=== PATIENT | male | born 1955 | race Caucasian/White ===

== ENCOUNTER 2016-10-20 07:09 | Day surgery (SDC) | payer OTHER ==
--- NOTE | 2016-10-19 13:04 | PREOPHP ---
DATE OF ADMISSION: 10/20/2016 HISTORY OF PRESENT ILLNESS: This 61-year-old patient is admitted for elective cataract surgery of t he left eye. The patient has had decreased vision in the left eye for the past 8 months without jaqui or history of eye disease or injury. Patient does have a history of insulin-dependent diabetes gucci itus and systemic hypertension. CURRENT MEDICATIONS INCLUDE: 1. Insulin. 2. Metformin. 3. Aspirin (discontinued 1 week prior to surgery). 4. Gemfibrozil. 5. Benazepril. ALLERGIES: THERE ARE NO KNOWN ALLERGIES. PHYSICAL EXAMINATION: The visual acuity best corrected is finger counting vision in each eye. Slit lamp examination reveals nuclear sclerotic and dense posterior subcapsular cataracts in both eyes w ith the left eye appearing to be a near mature cataract. Applanation tonometry is 11 mmHg in both e yes. Examination of the retina looks grossly within normal limits in the right eye. The left view of the retina in the left eye is obscured by the advanced cataract. DIAGNOSIS: Mature cataract, left eye. PLAN: Cataract extraction with lens implant, left eye. The risks and alternatives to the surgery h ave been discussed with the patient, as well as a result for improvement of visual acuity leading to a greater ability to perform activities of daily living. The patient understands this and agrees t o proceed with surgery. Dictated By: ESPINOZA ANTONIO/APRIL Conf#: [id number] DID#: [id number]
[~2016-10-20] VITALS: Ht 157.5 cm; Wt 66.3 kg
[~2016-10-20 07:09] MED LIST: CIPROFLOXACIN 0.3% 2.5 ML OPH OPER SCH; CYCLOPENTOLATE/PHENYLEPH 2 ML OPH OPER SCH; DICLOFENAC 0.1% 2.5 ML OPH OPER SCH; TROPICAMIDE 1% 2 ML OPH OPER SCH
[2016-10-20] MEDS ORDERED: METF1000 PO (08:23)
[2016-10-20] MEDS ORDERED: ASPI-664 PO (08:23)
[2016-10-20] MEDS ORDERED: NOVO7030 SC (08:24)
[2016-10-20 09:41] VITALS: Ht 157.5 cm; Wt 66.3 kg
[2016-10-20 09:46] VITALS: BP 159/85; PULSE 95; RESP 19
[2016-10-20] MEDS ORDERED: CARBACHOL 0.01% 1.5 ML OPH INJ ONE (09:57)
[2016-10-20] MEDS ORDERED: LIDOCAINE 4% (MPF) 5 ML INJ ONE (09:57)
[2016-10-20] MEDS ORDERED: CEFAZOLIN 1 GM INJ ONE (09:57)
[2016-10-20] MEDS ORDERED: GENTAMICIN 80 MG INJ ONE (09:57)
[2016-10-20] MEDS ORDERED: HYALURONATE/CHONDROITIN 1ML OPH INJ ONE (09:58)
[2016-10-20] MEDS ORDERED: DEXAMETHASONE 4 MG/ML 1 ML INJ ONE (09:58)
[2016-10-20] MEDS ORDERED: EPINEPHrine 1 MG INJ ONE (09:58)
[2016-10-20] MEDS ORDERED: CARBACHOL 0.01% 1.5 ML OPH INJ IO ONE (10:20)
[2016-10-20] MEDS ORDERED: CEFAZOLIN 1 GM INJ INJ ONE (10:20)
[2016-10-20] MEDS ORDERED: HYALURONATE/CHONDROITIN 1ML OPH INJ IO ONE (10:20)
[2016-10-20] MEDS ORDERED: DEXAMETHASONE 4 MG/ML 1 ML INJ INJ ONE (10:20)
[2016-10-20] MEDS ORDERED: MEPERIDINE 25 MG INJ IV PRN (10:30)
[2016-10-20] MEDS ORDERED: MIDAZOLAM 1 MG/ML 2 ML INJ IV PRN (10:30)
[2016-10-20] MEDS ORDERED: FENTAnyl 50 MCG/ML VIAL IV PRN ×2 (10:30)
[2016-10-20] MEDS ORDERED: DIPHENHYDRAMINE 50 MG INJ IV PRN (10:30)
[2016-10-20] MEDS ORDERED: ONDANSETRON 4 MG INJ IV PRN (10:30)
[2016-10-20] MEDS ORDERED: METOCLOPRAMIDE 10 MG INJ IV PRN (10:30)
[2016-10-20] MEDS ORDERED: OXYCODONE/ACETAMINOPHEN (5/325) TAB PO PRN ×2 (10:30)
[2016-10-20] MEDS ORDERED: PROPOFOL 20 ML ONE (10:45)
[2016-10-20 11:02] VITALS: BP 155/87; PULSE 88; RESP 25
[2016-10-20 11:07] VITALS: BP 146/85; PULSE 86; RESP 13
[2016-10-20 11:13] VITALS: BP 151/87; PULSE 86; RESP 13
[2016-10-20 11:20] VITALS: BP 149/88; PULSE 86; RESP 14
[2016-10-20 11:30] VITALS: BP 124/64; PULSE 87; RESP 20
--- NOTE | 2016-10-20 11:38 | OPR ---
DATE OF OPERATION: 10/20/2016 PREOPERATIVE DIAGNOSIS: Mature cataract, left eye. POSTOPERATIVE DIAGNOSIS: Mature cataract, left eye. OPERATION PERFORMED: Cataract extraction with lens implant, left eye. SURGEON: Espinoza Stringer MD ANESTHESIA: Local standby. ANESTHESIOLOGIST: Dr. Marcial OPERATION: Phacoemulsification with posterior chamber intraocular lens implant, left eye. Phacoemulsification with posterior chamber intraocular. A total of 2 minutes and 32 seconds was spe nt using the ultrasonic controls to remove the mature lens nucleus. PROCEDURE: The patient was brought to the operating room and placed on the table with an IV in plac e and the patient attached to an court monitor. Oxygen was given via face mask. After some intravenous sedation was administered, local anesthesia was given using Xylocaine 2% with epinephrine, mixed with Marcaine 0.5%. This was given in a lid block and retrobulbar injection. The patient was then prepped and draped in the usual sterile manner. A wire lid speculum was inserted between the lids of the left eye. A Superblade was used to enter th e anterior chamber at the corneoscleral limbus at the 10:30 o'clock position. A separate incision wa s made using a 3.0-mm keratome which entered the corneoscleral junction at the 12 o'clock position. Through this 3-mm opening, an irrigating cystotome was introduced into the anterior chamber. The shilpi mber was filled with Viscoat and an anterior capsulotomy was performed. Balanced salt solution was t hen used for hydrodissection of the lens. A phacoemulsification handpiece was then brought into the field and introduced into the anterior chamber. The lens nucleus was emulsified using a deep groove and cracking the nucleus into quadrants. Following this, each quadrant was aspirated and emulsified at the pupillary margin. After this was completed, the irrigation/aspiration handpiece was brought to the field, introduced i nto the posterior chamber, and the lens cortical material was removed. When this was completed, azul tional Viscoat was injected into the anterior and posterior chambers. The 3-mm opening had its internal lips enlarged, and then the posterior chamber intraocular lens tobias suring 21.5 diopters ([employer] Model LI61AO) was then injected into the posterior chamber using the lens injector system. After the leading haptic was introduced into the capsular b ag and the lens optic was present in the center of the eye, the injector was removed and the trailin g haptic was grasped with non-toothed forceps and introduced into the capsular fold superiorly. A Si nskey hook was then used to rotate the intraocular lens so that the lips were oriented in the horizo ntal meridian. One 10-0 nylon suture was placed across the wound. Prior to tying, the irrigation/aspiration handpiece was reintroduced into the anterior chamber to re move the Viscoat. Miochol was instilled to constrict the pupil, and then the 10-0 nylon suture was t ied. The ends were cut short and then the knot was buried. Then, 0.5 mL of dexamethasone and 0.5 mL of Ancef were injected into the sub-Tenon space in the infe rior fornix. Ciloxan drops were then placed on the surface of the eye. The speculum was removed and a patch was applied. The patient then left the operating room in satisfactory condition. Dictated By: ESPINOZA ANTONIO/APRIL Conf#: [id number] DID#: [id number]
== END 2016-10-20 12:30 | disposition home or self-care (01) ==
LOC: SDS 07:09
PROVIDERS: ATTEND Ophthalmology
DX: H25.042 Posterior subcapsular polar age-related cataract, left eye (principal); E11.9 Type 2 diabetes mellitus without complications; Z79.4 Long term (current) use of insulin; I10 Essential (primary) hypertension
CPT/HCPCS: 66984; 82962; J0171; J0690; J1100; J1580; V2632; Z7512; Z7610

== ENCOUNTER 2017-01-05 08:12 | Day surgery (SDC) | payer OTHER ==
--- NOTE | 2016-12-31 13:56 | PREOPHP ---
DATE OF ADMISSION: 01/05/2017 HISTORY OF PRESENT ILLNESS: This is a 60-year-old patient who is admitted for elective cataract surgery of the right eye. The patient has had a decreased vision for the last 10 months, and 2 months ago underwent cataract surgery for a mature cataract in the left eye. The surgery was performed and the patient has significant recovery of his visual acuity. The patient is now admitted for cataract surgery of the right eye. The patient has a history of insulin dependent diabetes mellitus and systemic hypertension. REVIEW OF SYSTEMS: The patient's systemic history is within normal limits with no evidence of disease. MEDICATIONS: Includes insulin, Metformin, Gemfibrozil, Benazepril and aspirin (aspirin discontinued 2 weeks ago prior to surgery). ALLERGIES: THERE ARE NO KNOWN ALLERGIES. EXAMINATION: EYES: On examination, the visual acuity with best correction is finger counting in the right eye and 20/40 in the left eye. Slit lamp examination reveals nuclear sclerotic and posterior subcapsular cataract in the right eye. The left eye has a posterior chamber intraocular lens in appropriate position. Applanation tonometry 11 mmHg. Examination of the retina appears within normal limits in the right eye. DIAGNOSIS: Advanced cataract formation in the right eye. PLAN: Cataract extraction with lens implant, right eye. The risks and alternatives of the surgery have been discussed with the patient and patient has opted to proceed with surgery on the basis of the visual improvement that he obtained in the left eye following cataract surgery, and in the hopes of being able to perform activities of daily living, which be made easier with improved visual acuity. Dictated By: Az Stringer MD /chavo/maury /Document#: [id number]
[~2017-01-05] VITALS: Ht 170.2 cm; Wt 64.0 kg
[2017-01-05] VITALS (10 sets, daily range): BP systolic 126–150; BP diastolic 80–93; PULSE 88–93; RESP 8–19; Ht 170.2 cm; Wt 64.0 kg
[~2017-01-05 08:12] MED LIST changes: +ASPI-664 PO; +ATROPINE 1 MG/10 ML SYRINGE IV PRN; +DIPHENHYDRAMINE 50 MG INJ IV PRN; +EPHEDrine SULFATE 50 MG/5 ML SYG IV PRN; +FENTAnyl 50 MCG/ML VIAL IV PRN; +HYDROmorphONE (0.2 MG/ML) 10ML SYG IV PRN; +LABETALOL HCL 20MG INJ IV PRN; +MEPERIDINE 25 MG INJ IV PRN; +METF1000 PO; +MIDAZOLAM 1 MG/ML 2 ML INJ IV PRN; +NOVO7030 SC; +ONDANSETRON 4 MG INJ IV PRN; +OXYCODONE/ACETAMINOPHEN (5/325) TAB PO PRN; -TROPICAMIDE 1% 2 ML OPH OPER SCH; +TROPICAMIDE 1% 3ML OPH OPER SCH; +hydrALAzine 20 MG INJ IV PRN; +morphine (1 MG/ML) 10ML SYRINGE IV PRN
--- NOTE | 2017-01-05 08:14 | HPN ---
Date/Time of Note Date/Time of Note DATE: 01/05/17 TIME: 08:14 Interval H&P Admission Note Pt. seen H&P reviewed: No system changes ESPINOZA WATTS MD Jan 05, 2017 08:14
--- NOTE | 2017-01-05 08:16 | SIPON ---
Date/Time of Note Date/Time of Note DATE: 01/05/17 TIME: 08:14 Operative Report Preoperative Diagnosis cataract od Postoperative Diagnosis same Operation/Procedure Performed cataract surgery od Surgeon: ESPINOZA WATTS MD Anesthesia Type: MAC Estimated Blood Loss: none Transfusion Required: no Specimen: none Grafts/Implants posterior chamber lens implant Complications: no ESPINOZA WATTS MD Jan 05, 2017 08:16
--- NOTE | 2017-01-05 08:18 | HPN ---
Date/Time of Note Date/Time of Note DATE: 01/05/17 TIME: 08:18 Interval H&P Admission Note Pt. seen H&P reviewed: No system changes ESPINOZA WATTS MD Jan 05, 2017 08:18
[2017-01-05] MEDS ORDERED: EPINEPHrine 1 MG INJ ONE (11:04)
[2017-01-05] MEDS ORDERED: DEXAMETHASONE 4 MG/ML 1 ML INJ ONE (11:04)
[2017-01-05] MEDS ORDERED: CEFAZOLIN 1 GM INJ ONE (11:04)
[2017-01-05] MEDS ORDERED: LIDOCAINE 4% (MPF) 5 ML INJ ONE (11:04)
[2017-01-05] MEDS ORDERED: GENTAMICIN 80 MG INJ ONE (11:04)
[2017-01-05] MEDS ORDERED: CARBACHOL 0.01% 1.5 ML OPH INJ ONE (11:04)
--- NOTE | 2017-01-05 11:08 | HPN ---
Date/Time of Note Date/Time of Note DATE: 01/05/17 TIME: 11:07 Interval H&P Admission Note Pt. seen H&P reviewed: No system changes ESPINOZA WATTS MD Jan 05, 2017 11:07
[2017-01-05] MEDS ORDERED: PROPOFOL 20 ML ONE (11:09)
[2017-01-05] MEDS ORDERED: LIDOCAINE 2% (SDV) 5 ML INJ ONE (11:10)
[2017-01-05] MEDS ORDERED: CEFAZOLIN 1 GM INJ INJ ONE (11:12)
[2017-01-05] MEDS ORDERED: DEXAMETHASONE 4 MG/ML 1 ML INJ INJ ONE (11:12)
[2017-01-05] MEDS ORDERED: CARBACHOL 0.01% 1.5 ML OPH INJ IO ONE (11:12)
--- NOTE | 2017-01-05 11:59 | HPN ---
Date/Time of Note Date/Time of Note DATE: 01/05/17 TIME: 11:59 Interval H&P Admission Note Pt. seen H&P reviewed: No system changes ESPINOZA WATTS MD Jan 05, 2017 11:59
--- NOTE | 2017-01-05 12:00 | SIPON ---
Date/Time of Note Date/Time of Note DATE: 01/05/17 TIME: 11:59 Operative Report Preoperative Diagnosis cataract od Postoperative Diagnosis same Operation/Procedure Performed cataract surgery od Surgeon: ESPINOZA WATTS MD Anesthesia Type: MAC Estimated Blood Loss: none Transfusion Required: no Grafts/Implants posterior chamber lens implant Complications: no ESPINOZA WATTS MD Jan 05, 2017 12:00
--- NOTE | 2017-01-05 12:38 | OPR ---
DATE OF OPERATION: 01/05/2017 PREOPERATIVE DIAGNOSIS: Cataract, right eye. POSTOPERATIVE DIAGNOSIS: Cataract, right eye. SURGEON: Az Stringer MD ANESTHESIA: Local standby. ANESTHESIOLOGIST: Dr. Guzmán. OPERATION: Phacoemulsification with posterior chamber intraocular lens implant, right eye. PROCEDURE: The patient was brought to the operating room and placed on the table with an IV in place and the patient attached to an coal deliverer. Oxygen was given via face mask. After some intravenous sedation was administered, local anesthesia was given using Xylocaine 2% with epinephrine, mixed with Marcaine 0.5%. This was given in a lid block and retrobulbar injection. The patient was then prepped and draped in the usual sterile manner. A wire lid speculum was inserted between the lids of the right eye. A Superblade was used to enter the anterior chamber at the corneoscleral limbus at the 10:30 o'clock position. A separate incision was made using a 3.0-mm keratome which entered the corneoscleral junction at the 12 o'clock position. Through this 3- mm opening, an irrigating cystotome was introduced into the anterior chamber. The chamber was filled with Viscoat and an anterior capsulotomy was performed. Balanced salt solution was then used for hydrodissection of the lens. A phacoemulsification handpiece was then brought into the field and introduced into the anterior chamber. T he lens nucleus was emulsified using a deep groove and cracking the nucleus into quadrants. Following this, each quadrant was aspirated and emulsified at the pupillary margin. After this was completed, the irrigation/aspiration handpiece was brought to the field, introduced into the posterior chamber, and the lens cortical material was removed. When this was completed, additional Viscoat was injected into the anterior and posterior chambers. The 3-mm opening had its internal lips enlarged, and then the posterior chamber intraocular lens measuring 21.5 diopters posterior chamber intraocular lens (Bausch and Lomb model LI61AL) was then injected into the posterior chamber using the lens injector system with DisCoVisc after the leading haptic was introduced into the capsular bag and the lens optic was present in the center of the eye, the injector was removed and the trailing haptic was grasped with non-toothed forceps and introduced into the capsular fold superiorly. A Sinskey hook was then used to rotate the intraocular lens so that the lips were oriented in the horizontal meridian. One 10-0 nylon suture was placed across the wound. Prior to tying, the irrigation/aspiration handpiece was reintroduced into the anterior chamber to remove the Viscoat. Miochol was instilled to constrict the pupil, and then the 10-0 nylon suture was tied. The ends were cut short and then the knot was buried. Then, 0.5 mL of dexamethasone and 0.5 mL of Ancef were injected into the sub-Tenon space in the inferior fornix. Ciloxan drops were then placed on the surface of the eye. The speculum was removed and a patch was applied. The patient then left the operating room in satisfactory condition. Dictated By: Az Stringer MD /chavo/deborah /Document#: [id number]
== END 2017-01-05 13:38 | disposition home or self-care (01) ==
LOC: SDS 08:12
PROVIDERS: ATTEND Ophthalmology
DX: H25.11 Age-related nuclear cataract, right eye (principal); I10 Essential (primary) hypertension; E11.9 Type 2 diabetes mellitus without complications; E78.5 Hyperlipidemia, unspecified
CPT/HCPCS: 66984; 82962; J0171; J0690; J1100; J1580; V2632; Z7512; Z7610